=== PATIENT | female | born 1975 | race Caucasian/White ===

== ENCOUNTER 2019-05-29 02:46 | Inpatient (IN) | payer OTHER ==
[2019-05-29] MEDS ORDERED: Ringers Lactate 1,000 ML IV PRN (03:34)
[2019-05-29] MEDS ORDERED: Ringers Lactate 1,000 ML IV SCH (04:00)
[2019-05-29] MEDS ORDERED: BUTORPHANOL 1 MG/ML INJ ONE (04:00)
[2019-05-29] MEDS ORDERED: PROMETHAZINE 25 MG/ML VIAL ONE (04:00)
[2019-05-29 04:08] VITALS: BMI 27.4
[2019-05-29] MEDS ORDERED: METHYLERGONOVINE 0.2MG/ML AMP IM PRN ×2 (04:15→08:49)
[2019-05-29] MEDS ORDERED: BUTORPHANOL 1 MG/ML INJ IV PRN (04:15)
[2019-05-29] MEDS ORDERED: MEPERIDINE HCL 25 MG/0.5 ML IV PRN (04:15)
[2019-05-29] MEDS ORDERED: MIDAZOLAM HCL 2 MG/2 ML INJ IV PRN (04:15)
[2019-05-29] MEDS ORDERED: CARBOPROST TROME 250 MCG/ML IM PRN ×2 (04:15→08:49)
[2019-05-29] MEDS ORDERED: PROMETHAZINE 25 MG/ML VIAL IV PRN (04:15)
[2019-05-29] MEDS ORDERED: LIDOCAINE 1% 20 ML MDV IV ONE (04:16)
--- NOTE | 2019-05-29 04:17 | PREOPHP ---
Date of Admission: 05/29/2019 History Of Present Illness: Ms. Cruz is a 43-year-old female, 4, para 3-0 -0-3, followed by me during this without complications other than advanced maternal age. S he is admitted with contractions began approximately 1 o'clock this morning. Past Medical History: Please see record. Family History: Please see record. Review of Systems: She reports no recent cough, cold, fever, or chills. No recent nausea or vomiting. She denies any b reast knots. Baby has been active. She denies any vaginal bleeding or spotting, UTI symptoms or bow el issues. Physical Examination: General: Reveals pleasant female, in mild discomfort. Neck: Supple without adenopathy or thyromegaly. Lungs: Clear. Cardiac: Regular rate and rhythm without murmurs. Breasts: Not examined. Abdomen: Estimated weight 7+ pounds. Pelvic: Cervix now 6+ to 7 cm, vertex presentation at -1 station. Extremities: No cyanosis, clubbing, or edema. Impression: 39+ week , active labor, advanced maternal age. Plan: Patient will be prepared for delivery. We will avoid AROM until epidural placement if possibl e. LORETTA/NELLIE Voice ID: [id number]
[2019-05-29] MEDS ORDERED: FENTANYL CITR 100 MCG/2 ML IV ONE (04:25)
[2019-05-29] MEDS ORDERED: ROPIVACAINE HCL 100 ML IV PRN (04:25)
[2019-05-29] MEDS ORDERED: ROPIVACAINE HCL 0.2% 20ML AMP SQ ONE (04:26)
[2019-05-29 04:28] LABS: Absolute Lymphocytes (CBC) 2.2 K/uL (0.7-4.9); Basophils % 0.1 % (0-1.3); Lymphocytes % 21.7 % (15.3-44.8); MPV 9.6 fL (7.6-11.3); RBC Red Blood Cell Count 4.01 M/uL (3.86-4.86)
[2019-05-29 04:29] LABS: Urine Appearance CLEAR; Urine Bilirubin NEGATIVE (NEG); Urine Blood NEGATIVE (NEG); Urine Color YELLOW; Urine Glucose NEGATIVE (NEG); Urine Protein NEGATIVE (NEG); Urine Specific Gravity 1.015 (1.005-1.030); Urine Urobilinogen 0.2 mg/dL (0.2-1.0)
[2019-05-29 04:58] LABS: Urine Bacteria <20 /HPF (<20); Urine Culture Reflex Order NOT NEEDED; Urine RBC NONE SEEN /HPF (NONE SEEN)
[2019-05-29] MEDS ORDERED: OXYTOCIN/LR 20 UNIT/1,000 ML BAG IV SCH ×2 (05:00→09:00)
[2019-05-29] MEDS ORDERED: ONDANSETRON 4 MG (ODT) TAB PO PRN (08:49)
[2019-05-29] MEDS ORDERED: METHYLERGONOVINE 0.2 MG TAB PO PRN (08:49)
--- NOTE | 2019-05-29 08:52 | P.BOP ---
Preoperative diagnosis: 39 wk , AMA Postoperative diagnosis: same, viable male , CANx1 Primary procedure: SCVD Secondary procedure: repair first degree perineal laceration Estimated blood loss: Less than 100ml Anesthesia: epidural Complications: None Transferred to: Other (273) Condition: Good
[2019-05-29] MEDS ORDERED: Ringers Lactate 2,000 ML IV ONE (11:30)
[2019-05-29] MEDS: IBUPROFEN 200 MG TAB PO PRN ×2 (12:20→20:17)
[2019-05-29] MEDS: ACETAMINOPHEN 500 MG TAB PO PRN ×2 (16:15→23:30)
[2019-05-30 00:50] LABS: RPR (Rapid Plasma Reagin) NON-REACT (NON-REACT)
--- NOTE | 2019-05-30 02:36 | DN ---
Surgeon: Domingo Fisher MD Ms. Cruz is a 43-year-old female, 4, para 3-0-0-3, at approximately 39 wee ks gestation. She is admitted in active labor, noted to be approximately 4 to 5 cm on admission. Manuel parrish had a first stage of labor of 6 hours and 17 minutes, second stage of labor at 43 minutes. She del ivered by spontaneous controlled vaginal delivery of an 8 pounds 5-ounce male infant. After delayed cord clamping and some milking of the cord from the placenta to the , the cord was clamped, cut , and the infant placed on mother's upper abdomen. The placenta was spontaneously expelled and appea red to be intact, but because of some delay in placental expulsion, brief curettage of the endometriu m was performed to rule out any retained tissue, none was found. She suffered a first-degree perinea l laceration repaired in the usual fashion with 1 figure-of-8 suture 3-0 Vicryl. Estimated total blo od loss was less than 100 cc. She received 1 mg of Stadol, 12.5 mg of Phenergan IV x1 for analgesia prior to placement of epidural catheter. She received excellent benefit from this. LORETTA/NELLIE Voice ID: [id number] Report ID: [id number]
[2019-05-30] MEDS ORDERED: IBUPROFEN 400 MG TAB ONE (02:40)
[2019-05-30] MEDS: IBUPROFEN 200 MG TAB PO PRN (02:40)
[2019-05-30] MEDS: ACETAMINOPHEN 500 MG TAB PO PRN (07:30)
[2019-05-30 07:35] VITALS: BP 93/55; TEMP 97.5
[2019-05-31 03:45] LABS: HBsAG Nonreactive (Nonreactive)
--- NOTE | 2019-05-31 08:35 | DS ---
Date of Discharge: 05/30/2019 Final Hospital Discharge Diagnosis: 39 week , delivered. Complications: None. Procedures: Artificial rupture of membranes, Pitocin augmentation of labor, placement of epidural ca theter, spontaneous controlled vaginal delivery of viable male , repair of first-degree perinea l laceration. Hospital Course: The patient is a 43-year-old female, 4, para 3-0-0-3 at 3 9+ weeks gestation, admitted in active labor. She delivered an 8 pound 5 ounce male , 9 and 9 with epidural anesthesia. She was dismissed on the first day, ambulatory, on a kathleen ct diet with routine post vaginal delivery activity restrictions to be seen back in my office in 1 we ek and 6 weeks. Lab included an admission hemoglobin and hematocrit of 12.6 and 37.0, dismissal of 3 4.0. She had a negative urinalysis. RPR was nonreactive. She is Rh positive blood type and rubella immune. She was dismissed with usual post vaginal delivery activity restrictions. LORETTA/NELLIE Voice ID: [id number] Report ID: [id number]
== END 2019-05-30 11:55 | disposition home or self-care (01) | DRG 807 ==
LOC: 2ND-WC 02:46
PROVIDERS: ADMIT Specialist; ATTEND Specialist
PROC: 10E0XZZ Delivery of Products of Conception, External Approach (ICD-10-PCS; principal; 2019-05-29)
PROC: 0HQ9XZZ Repair Perineum Skin, External Approach (ICD-10-PCS; 2019-05-29)
PROC: 10907ZC Drainage of Amniotic Fluid, Therapeutic from Products of Conception, Via Natural or Artificial Opening (ICD-10-PCS; 2019-05-29)
DX: O70.0 First degree perineal laceration during delivery (principal); Z37.0 Single live birth; O69.81X0 Labor and delivery complicated by cord around neck, without compression, not applicable or unspecified; Z3A.39 39 weeks gestation of pregnancy
CPT/HCPCS: 36415; 81001; 85014; 85025; 86592; 86901; 87340; J0595; J2210; J2550; J2590; J2795; J3010